=== PATIENT | female | born 1965 | race Caucasian/White ===

== ENCOUNTER 2017-09-10 01:45 | Inpatient (IN) | payer OTHER ==
[~2017-09-10] VITALS: Ht 154.9 cm; Wt 70.3 kg
[2017-09-10 01:52] VITALS: Ht 154.9 cm; Wt 70.3 kg
[2017-09-10 02:42] LABS: BASOPHIL % 0.6 % (0-2); PLATELET COUNT 353 x10^3mcL (130-400)
[2017-09-10 02:48] LABS: CALCIUM 8.1 mg/dL (8.5-10.1); CARBON DIOXIDE 22.7 mmol/L (21-32); CHLORIDE SERUM 105 mmol/L (98-107); CREATININE SERUM 0.6 mg/dL (0.6-1.0); GFR1 > 60 mL/min; GLUCOSE SERUM 108 mg/dL (74-106); POTASSIUM SERUM 3.7 mmol/L (3.5-5.1); SODIUM SERUM 139 mmol/L (136-145)
[2017-09-10 02:52] LABS: ALKALINE PHOSPHATASE 74 U/L (46-116); ALT/SGPT 14 U/L (14-59); AST/SGOT 18 U/L (15-37); BILIRUBIN TOTAL 0.22 mg/dL (0.20-1.00); LIPASE 169 IU/L (73-393); TOTAL PROTEIN, SERUM 6.8 g/dL (6.4-8.2)
[2017-09-10 02:54] LABS: ALBUMIN 3.2 g/dL (3.4-5.0)
[2017-09-10] MEDS ORDERED: ENALAPRIL MALEA10 MG GT (02:59)
[2017-09-10] MEDS ORDERED: EPZICOM1 TAB (03:00)
[2017-09-10] MEDS ORDERED: HYDROCHLOROTHIA25 MG PO (03:00)
[2017-09-10 03:46] VITALS: BP 124/80
[2017-09-10 03:50] LABS: MAGNESIUM 1.8 mg/dL (1.8-2.4); PHOSPHOROUS 3.4 mg/dL (2.5-4.9)
[2017-09-10 03:55] LABS: CHOLESTEROL/HDL RATIO 5.1
[2017-09-10 03:59] LABS: T3 TOTAL 1.3 ng/mL
[2017-09-10 04:11] LABS: FREE T4 0.94 ng/dL (0.76-1.46); FREE THYROXINE INDEX 2.2 ug/dL (1.4-4.5); T4(THYROXINE) 6.8 ug/dL (4.7-13.3)
[2017-09-10 06:04] VITALS: BP 99/62
[2017-09-10 07:10] LABS: CALCIUM 7.9 mg/dL (8.5-10.1); CARBON DIOXIDE 26.2 mmol/L (21-32); CHLORIDE SERUM 106 mmol/L (98-107); CREATININE SERUM 0.6 mg/dL (0.6-1.0); GFR1 > 60 mL/min; GLUCOSE SERUM 92 mg/dL (74-106); POTASSIUM SERUM 3.8 mmol/L (3.5-5.1); SODIUM SERUM 139 mmol/L (136-145)
[2017-09-10 13:25] LABS: microscopic required? NO
[2017-09-10 14:00] LABS: urine erythrocyte NEGATIVE (NEGATIVE)
[2017-09-10 18:29] VITALS: BP 113/67
[2017-09-10 21:39] VITALS: BP 109/60
[2017-09-11 05:53] VITALS: BP 113/70
[2017-09-11 09:08] VITALS: BP 124/72
[2017-09-11 12:46] VITALS: BP 112/70
[2017-09-11 13:00] VITALS: BP 124/72
[2017-09-11] MEDS ORDERED: TYL325 PO (15:21)
== END 2017-09-11 16:26 | disposition home or self-care (01) | DRG 203 ==
LOC: ED 01:45 → DU 03:10 → EDBEDREQ 03:21 → DU 03:25 → EDBEDREQ 03:29 → DU 03:37
PROVIDERS: Emergency Medicine; General Practice
DX: M94.0 Chondrocostal junction syndrome [Tietze] (principal); E44.0 Moderate protein-calorie malnutrition; I10 Essential (primary) hypertension; D64.9 Anemia, unspecified; Z53.29 Procedure and treatment not carried out because of patient's decision for other reasons; E78.5 Hyperlipidemia, unspecified; Z68.29 Body mass index [BMI] 29.0-29.9, adult; Z79.899 Other long term (current) drug therapy
CPT/HCPCS: 83880; 84439; J7030; Q0092